=== PATIENT | male | born 1945 ===

== ENCOUNTER 2022-10-08 07:45 | Outpatient (CLI) | payer OTHER ==
[2022-10-08] MEDS ORDERED: LIPITOR20 MG PO (10:43)
[2022-10-08] MEDS ORDERED: COZAAR50 MG PO (10:43)
[2022-10-08] MEDS ORDERED: GLIMEPIRIDE2 M1 PO (10:43)
[2022-10-08] MEDS ORDERED: LUMIGAN2.5 M1 OP (10:44)
[2022-10-08] MEDS ORDERED: CIALIS20 MG PO (10:44)
[2022-10-08] MEDS ORDERED: ACID REDUCER20 M1 PO (10:44)
[2022-10-08] MEDS ORDERED: ECOTRIN81 MG PO (10:45)
[2022-10-08] MEDS ORDERED: METFORMIN HCL500 M3 PO (10:45)
[2022-10-08] MEDS ORDERED: GABAPENTIN100 M2 PO (10:45)
== END 2022-10-08 08:21 | disposition home or self-care (01) ==
LOC: LAB 07:45
PROVIDERS: ATTEND Orthopaedic Surgery Sports Medicine
DX: Z20.822 Contact with and (suspected) exposure to COVID-19 (principal); D68.9 Coagulation defect, unspecified

== ENCOUNTER 2022-10-08 07:45 | Inpatient (IN) | payer OTHER ==
[~2022-10-08] VITALS: Ht 162.6 cm; Wt 83.5 kg
[2022-10-08] MEDS ORDERED: COZAAR50 MG PO (10:43)
[2022-10-08] MEDS ORDERED: GLIMEPIRIDE2 M1 PO (10:43)
[2022-10-08] MEDS ORDERED: LIPITOR20 MG PO (10:43)
[2022-10-08] MEDS ORDERED: LUMIGAN2.5 M1 OP (10:44)
[2022-10-08] MEDS ORDERED: ACID REDUCER20 M1 PO (10:44)
[2022-10-08] MEDS ORDERED: CIALIS20 MG PO (10:44)
[2022-10-08] MEDS ORDERED: METFORMIN HCL500 M3 PO (10:45)
[2022-10-08] MEDS ORDERED: GABAPENTIN100 M2 PO (10:45)
[2022-10-08] MEDS ORDERED: ECOTRIN81 MG PO (10:45)
[2022-10-11] MEDS ORDERED: OMEPRAZOLE20 MG (10:00)
[2022-10-11] MEDS ORDERED: DORZOLAMIDE-TIM10 ML (10:00)
[2022-10-11] MEDS ORDERED: ALPHAGAN P5 M2 (10:00)
[2022-10-11] MEDS ORDERED: IBUPROFEN600 MG (10:00)
[2022-10-11] MEDS ORDERED: VALACYCLOVIR500 MG (10:00)
[2022-10-11] MEDS ORDERED: OFLOXACIN5 ML (10:00)
[2022-10-13] MEDS ORDERED: XARELTO10 MG PO (07:17)
[2022-10-13] MEDS ORDERED: BACTRIM DS TAB1 EACH PO (07:17)
[2022-10-13] MEDS ORDERED: INTEGRA PLUS C1 EACH PO (07:17)
[2022-10-13] MEDS ORDERED: OXYC1TAB9 PO (07:17)
== END 2022-10-13 18:18 | DRG 470 ==
LOC: EDUNIT# 07:45 → O/R 10-11 06:54 → SURG 10-11 06:54 → SURH 10-11 07:45 → SURG 10-11 14:24
PROVIDERS: ADMIT Orthopaedic Surgery Sports Medicine; ATTEND Orthopaedic Surgery Sports Medicine
PROC: 0SR902Z Replacement of Right Hip Joint with Metal on Polyethylene Synthetic Substitute, Open Approach (ICD-10-PCS; principal; 2022-10-11 08:15)
DX: M16.11 Unilateral primary osteoarthritis, right hip (principal); Z20.822 Contact with and (suspected) exposure to COVID-19